=== PATIENT | male | born 1960 | race Caucasian/White ===

== ENCOUNTER → 2018-03-21 06:55 | Outpatient (CLI) | payer OTHER, SELFPAY ==
--- NOTE | 2018-03-21 | DI.US.S_ITS ---
PROCEDURE: US SCROTUM INDICATIONS: LEFT GROIN HERNIA TECHNIQUE: Real-time scanning was performed of the scrotum and testicles, with image documentation. Color and pulse Doppler interrogation was performed of both testicles. COMPARISON: [facility], [place], ABDOMEN COMPLETE, 10/18/2011, 8:05. [facility], [place], KIDNEY/ URETER/BLADDER, 10/18/2011, 7:09. [facility], [place], ABDOMEN LIMITED, 10/28/2009, 15:42. FINDINGS: Right: Testicle is normal in size at 5.0 x 2.1 x 3.7 cm, and homogenous in echotexture. Epididymis is normal in overall size and morphology. No hydrocele or varicoceles. Overlying scrotal skin is normal in thickness. Left: Testicle is normal in size at 4.1 x 1.4 x 2.4 cm, and homogeneous in echotexture. Epididymis is normal in overall size and morphology. No hydrocele or varicoceles. Overlying scrotal skin is normal in thickness. No inguinal hernia identified. Doppler: Color and pulse Doppler demonstrate normal and symmetric arterial flow in both testicles. IMPRESSION: Mild asymmetry in testicular size, right greater than left. Otherwise, the testicles are normal and no left inguinal hernia seen. Dictated by: Luis Armando Ruano A Interpreted: Cyndie Valle MD on 03/21/2018 at 8:46 Approved by: Cyndie Valle MD, PhD on 03/21/2018 at 10:18
== END ==
PROVIDERS: Visit Provider Family Medicine
DX: K40.90 Unilateral inguinal hernia, without obstruction or gangrene, not specified as recurrent (principal)
CPT/HCPCS: 76870